=== PATIENT | female | born 1980 | race Caucasian/White ===

== ENCOUNTER 2017-01-30 14:52 | Emergency (ER) | payer OTHER ==
[~2017-01-30] VITALS: Wt 81.6 kg
[~2017-01-30 14:52] MED LIST: FLEXERIL5 MG PO; NKHM; PREDNISONE20 MG PO; TRAMADOL HCL50 MG PO
[2017-01-30] MEDS ORDERED: CYCLOBENZAPRINE10 MG PO (16:07)
== END 2017-01-30 16:30 | disposition home or self-care (01) ==
LOC: ED 14:52
DX: G89.4 Chronic pain syndrome (principal); F17.200 Nicotine dependence, unspecified, uncomplicated; Z88.1 Allergy status to other antibiotic agents; Z88.8 Allergy status to other drugs, medicaments and biological substances; Z98.890 Other specified postprocedural states

== ENCOUNTER → 2017-03-04 | Outpatient (CLI) | payer OTHER ==
[~2017-03-04] MED LIST changes: +CYCLOBENZAPRINE10 MG PO
== END | disposition home or self-care (01) ==
LOC: LAB 14:11
DX: R53.83 Other fatigue (principal)